=== PATIENT | male | born 1955 | race Caucasian/White ===

== ENCOUNTER 2017-05-07 10:08 | Day surgery (SDC) | payer OTHER ==
[~2017-05-07] VITALS: Ht 175.3 cm; Wt 108.0 kg
[2017-05-07] MEDS ORDERED: WARF5 PO (10:40)
[2017-05-07 10:42] LABS: International Normalized Ratio 3.16; Prothrombin Time Results 34.1 Sec (9.7-11.5)
[2017-05-07] MEDS ORDERED: SILD25T PO (10:42)
[2017-05-07] MEDS ORDERED: Norco 10-325 T1 EACH PO (10:43)
== END 2017-05-07 22:36 | disposition home or self-care (01) ==
LOC: MHTC 10:08
PROVIDERS: Internal Medicine Interventional Cardiology
PROC: 3E033TZ Introduction of Destructive Agent into Peripheral Vein, Percutaneous Approach (ICD-10-PCS; principal; 2017-05-07)
PROC: 065Q3ZZ Destruction of Left Saphenous Vein, Percutaneous Approach (ICD-10-PCS; principal; 2017-05-07)
DX: I83.028 Varicose veins of left lower extremity with ulcer other part of lower leg (principal); I80.202 Phlebitis and thrombophlebitis of unspecified deep vessels of left lower extremity; L97.829 Non-pressure chronic ulcer of other part of left lower leg with unspecified severity; I87.2 Venous insufficiency (chronic) (peripheral)
CPT/HCPCS: 36415; 36466; 36475; 85610; 99152; 99153; C1769; C1888; C1894; J1644; J2250; J2405; J3010; J7030; J7040

== ENCOUNTER 2017-06-04 10:13 | Day surgery (SDC) | payer OTHER ==
[~2017-06-04] VITALS: Ht 175.3 cm; Wt 108.0 kg
[~2017-06-04 10:13] MED LIST: Norco 10-325 T1 EACH PO; SILD25T PO; WARF5 PO
== END 2017-06-04 23:06 | disposition home or self-care (01) ==
LOC: MHTC 10:13
PROC: 065Q3ZZ Destruction of Left Saphenous Vein, Percutaneous Approach (ICD-10-PCS; principal; 2017-06-04)
PROC: 3E033TZ Introduction of Destructive Agent into Peripheral Vein, Percutaneous Approach (ICD-10-PCS; principal; 2017-06-04)
DX: I83.223 Varicose veins of left lower extremity with both ulcer of ankle and inflammation (principal); L97.329 Non-pressure chronic ulcer of left ankle with unspecified severity; E66.9 Obesity, unspecified; Z68.35 Body mass index [BMI] 35.0-35.9, adult; Z86.718 Personal history of other venous thrombosis and embolism; Z79.01 Long term (current) use of anticoagulants; Z79.899 Other long term (current) drug therapy; Z86.711 Personal history of pulmonary embolism
CPT/HCPCS: 36465; 36470; 36475; 99152; 99153; C1769; C1888; C1894; J1644; J2250; J3010; J7040

== ENCOUNTER 2017-08-21 12:30 | Day surgery (SDC) | payer OTHER | END 2017-08-21 14:17 | disposition home or self-care (01) | LOC: WOUND 12:30 | PROC: 2W1RX6Z Compression of Left Lower Leg using Pressure Dressing (ICD-10-PCS; principal; 2017-08-21) | DX: L97.329 Non-pressure chronic ulcer of left ankle with unspecified severity (principal); I87.2 Venous insufficiency (chronic) (peripheral); S81.802A Unspecified open wound, left lower leg, initial encounter; I87.002 Postthrombotic syndrome without complications of left lower extremity; I83.009 Varicose veins of unspecified lower extremity with ulcer of unspecified site; I73.9 Peripheral vascular disease, unspecified | CPT/HCPCS: G0463 ==

== ENCOUNTER 2017-08-23 15:30 | Day surgery (SDC) | payer OTHER | END 2017-08-23 16:14 | disposition home or self-care (01) | LOC: WOUND 15:30 | PROC: 2W1RX6Z Compression of Left Lower Leg using Pressure Dressing (ICD-10-PCS; principal; 2017-08-23) | DX: I87.2 Venous insufficiency (chronic) (peripheral) (principal); L97.329 Non-pressure chronic ulcer of left ankle with unspecified severity; S81.802A Unspecified open wound, left lower leg, initial encounter; I87.002 Postthrombotic syndrome without complications of left lower extremity; I73.9 Peripheral vascular disease, unspecified ==

== ENCOUNTER 2017-08-29 13:22 | Day surgery (SDC) | payer OTHER | END 2017-08-29 23:33 | disposition home or self-care (01) | LOC: WOUND 13:22 | PROC: 2W1RX6Z Compression of Left Lower Leg using Pressure Dressing (ICD-10-PCS; principal; 2017-08-29) | PROC: 0HBLXZZ Excision of Left Lower Leg Skin, External Approach (ICD-10-PCS; principal; 2017-08-29) | DX: L97.322 Non-pressure chronic ulcer of left ankle with fat layer exposed (principal); S81.802A Unspecified open wound, left lower leg, initial encounter; I87.002 Postthrombotic syndrome without complications of left lower extremity; I83.009 Varicose veins of unspecified lower extremity with ulcer of unspecified site; I73.9 Peripheral vascular disease, unspecified ==

== ENCOUNTER 2017-09-05 15:00 | Day surgery (SDC) | payer OTHER | END 2017-09-05 16:54 | disposition home or self-care (01) | LOC: WOUND 15:00 | PROC: 0HBLXZX Excision of Left Lower Leg Skin, External Approach, Diagnostic (ICD-10-PCS; principal; 2017-09-05) | PROC: 0HBLXZZ Excision of Left Lower Leg Skin, External Approach (ICD-10-PCS; principal; 2017-09-05) | DX: L97.322 Non-pressure chronic ulcer of left ankle with fat layer exposed (principal); S91.002A Unspecified open wound, left ankle, initial encounter; I87.002 Postthrombotic syndrome without complications of left lower extremity; I73.9 Peripheral vascular disease, unspecified ==

== ENCOUNTER 2017-09-11 14:00 | Day surgery (SDC) | payer OTHER | END 2017-09-11 16:02 | disposition home or self-care (01) | LOC: WOUND 14:00 | DX: Z48.00 Encounter for change or removal of nonsurgical wound dressing (principal); S81.802A Unspecified open wound, left lower leg, initial encounter; I87.002 Postthrombotic syndrome without complications of left lower extremity; I73.9 Peripheral vascular disease, unspecified | CPT/HCPCS: G0463 ==

== ENCOUNTER 2017-09-24 15:00 | Day surgery (SDC) | payer OTHER | END 2017-09-24 16:52 | disposition home or self-care (01) | LOC: WOUND 15:00 | DX: I83.023 Varicose veins of left lower extremity with ulcer of ankle (principal); I87.012 Postthrombotic syndrome with ulcer of left lower extremity; L97.322 Non-pressure chronic ulcer of left ankle with fat layer exposed; I89.0 Lymphedema, not elsewhere classified; Z86.718 Personal history of other venous thrombosis and embolism; Z79.01 Long term (current) use of anticoagulants | CPT/HCPCS: G0463 ==

== ENCOUNTER 2017-09-26 15:00 | Day surgery (SDC) | payer OTHER | END 2017-09-26 15:32 | disposition home or self-care (01) | LOC: WOUND 15:00 | PROC: 2W1RX6Z Compression of Left Lower Leg using Pressure Dressing (ICD-10-PCS; principal; 2017-09-26) | DX: S91.002A Unspecified open wound, left ankle, initial encounter (principal); S81.802A Unspecified open wound, left lower leg, initial encounter; I87.002 Postthrombotic syndrome without complications of left lower extremity; I83.009 Varicose veins of unspecified lower extremity with ulcer of unspecified site; I73.9 Peripheral vascular disease, unspecified ==

== ENCOUNTER 2020-08-11 04:20 | Emergency (ER) | payer OTHER ==
[~2020-08-11] VITALS: Ht 175.3 cm; Wt 120.7 kg
[2020-08-11 04:48] LABS: BASOPHILS ABSOLUTE AUTO 0.05 K/mm3 (0.00-0.23); BASOPHILS PERCENT AUTO 1 % (0-2); EOSINOPHILS ABSOLUTE AUTO 0.41 K/mm3 (0.00-0.68); EOSINOPHILS PERCENT AUTO 4 % (0-6); Hematocrit 45.8 % (37.0-53.0); Hemoglobin 14.9 g/dL (13.5-17.5); IMMATURE GRAN ABSOLUTE AUTO 0.02 K/mm3 (0.00-0.10); IMMATURE GRAN PERCENT AUTO 0 % (0-1); LYMPHOCYTES ABSOLUTE AUTO 3.39 K/mm3 (0.84-5.20); LYMPHOCYTES PERCENT AUTO 36 % (21-46); MONOCYTES ABSOLUTE AUTO 0.75 K/mm3 (0.16-1.47); MONOCYTES PERCENT AUTO 8 % (4-13); Mean Corpuscular HGB 28.9 pg (26.0-34.0); Mean Corpuscular HGB Conc 32.5 g/dL (31.5-36.5); Mean Corpuscular Volume 89 fL (80-100); NEUTROPHILS ABSOLUTE AUTO 4.88 K/mm3 (1.96-9.15); NEUTROPHILS PERCENT AUTO 51 % (41-73); Platelet Count 228 K/mm3 (150-400); RDW Coefficient Variation 13.4 % (11.7-14.2); RDW Standard Deviation 44.2 fL (35.1-46.3); Red Blood Cell Count 5.15 M/mm3 (4.30-5.90)
[2020-08-11 05:05] LABS: International Normalized Ratio 3.54; Prothrombin Time Results 35.6 Sec (9.7-11.5)
== END 2020-08-11 06:52 | disposition home or self-care (01) ==
LOC: ER 04:20
PROVIDERS: Emergency Medicine
DX: R04.0 Epistaxis (principal); Z79.01 Long term (current) use of anticoagulants; Z86.73 Personal history of transient ischemic attack (TIA), and cerebral infarction without residual deficits
CPT/HCPCS: 30903; 36415; 85025; 85610; 86850; 86900; 86901; 99283-25; A9270

== ENCOUNTER 2021-04-24 05:30 | Emergency (ER) | payer OTHER ==
[~2021-04-24] VITALS: Ht 175.3 cm; Wt 117.9 kg
== END 2021-04-24 07:45 | disposition home or self-care (01) ==
LOC: ER 05:30
DX: R04.0 Epistaxis (principal); Z86.711 Personal history of pulmonary embolism; Z86.718 Personal history of other venous thrombosis and embolism; Z87.891 Personal history of nicotine dependence; Z79.01 Long term (current) use of anticoagulants
CPT/HCPCS: 99283-25

== ENCOUNTER 2021-04-28 02:22 | Emergency (ER) | payer OTHER ==
[~2021-04-28] VITALS: Ht 177.8 cm; Wt 117.9 kg
[2021-04-28] MEDS ORDERED: AFRIN15 M6 (04:02)
[2021-04-28] MEDS ORDERED: AMOCLA875 PO (06:00)
[2021-04-28] MEDS ORDERED: XARELTO20 MG PO (06:41)
== END 2021-04-28 06:39 | disposition home or self-care (01) ==
LOC: ER 02:22
DX: R04.0 Epistaxis (principal); T45.515A Adverse effect of anticoagulants, initial encounter; Z79.899 Other long term (current) drug therapy; Z79.01 Long term (current) use of anticoagulants; Z87.891 Personal history of nicotine dependence
CPT/HCPCS: 30901; 99283-25; A9270

== ENCOUNTER 2023-12-21 07:48 | Emergency (ER) | payer OTHER ==
[~2023-12-21] VITALS: Ht 175.3 cm; Wt 108.9 kg
[~2023-12-21 07:48] MED LIST changes: +AFRIN15 M6; +AMOCLA875 PO; +HYDROCODONE-AC1 EA10 PO; +Pentoxifylline400 MG PO; +THERA-D2000 UNIT PO; +TRAM50 PO; +VOLTAREN ARTHRI20 GM TD; +Ventolin/Prove6.7 GM INH; +XARELTO20 MG PO
[2023-12-21 08:23] VITALS: BP 154/79
== END 2023-12-21 10:09 | disposition home or self-care (01) ==
LOC: ER 07:48
DX: S61.002A Unspecified open wound of left thumb without damage to nail, initial encounter (principal); W26.9XXA Contact with unspecified sharp object(s), initial encounter; Y99.0 Civilian activity done for income or pay; Z87.891 Personal history of nicotine dependence; Z79.899 Other long term (current) drug therapy
CPT/HCPCS: 12001; 99282-25